=== PATIENT | female | born 1960 ===

== ENCOUNTER 2022-06-26 11:06 | Observation (INO) | payer OTHER, SELFPAY ==
[2022-06-26] VITALS (17 sets, daily range): BP systolic 153–176; BP diastolic 76–103; PULSE 66–97; RESP 17–32; TEMP 36.5–36.9; O2SAT 94–100
--- NOTE | ~2022-06-26 | CT_ITS ---
EXAMINATION: CT brain wo con DATE: 06/26/2022 23:56 INDICATION: Head trauma post fall from bed1 TECHNIQUE: Computed tomography (CT) of the head was performed without intravenous contrast. Sagittal and coronal reconstructions were performed. The mA was adjusted according to patient size. Iterative reconstruction technique was employed. The dose-length product was 605.33 mGy-cm. COMPARISON: None FINDINGS: No fracture. No acute intracranial hemorrhage, acute infarction or abnormal extra axial fluid collect ion. Ventricles are normal and symmetric. No mass/mass effect. Mild mucoperiosteal thickening the wiley ateral ethmoid sinuses. The orbits, paranasal sinuses and mastoid air cells are normal. IMPRESSION: 1. Normal brain. No fracture or acute intracranial process. Reviewed, dictated and finalized at location A.
--- NOTE | ~2022-06-26 | CT_ITS ---
EXAMINATION: CT diagnostic chest wo con DATE: 06/26/2022 13:13 INDICATION: Shortness of breath, history of COPD TECHNIQUE: Computed tomography (CT) of the chest was performed without intravenous contrast. The dose -length product (DLP) was 134.98 mGy-cm. Automated exposure control and iterative reconstruction tech [employer] were employed. COMPARISON: 04/04/2019 FINDINGS: There are patchy airspace opacities of the upper lobes. There is mild atelectasis in the bill perior aspect of the right middle lobe. Moderate emphysema is noted. No pleural effusion or pneumotho rax. Cardiomegaly is noted. There is a stable 6 mm nodule in the left upper lobe adjacent to the sylvia r fissure (image 25). Cardiomegaly is noted. There is a small pericardial effusion. Calcified mediast inal lymph nodes are consistent with old granulomatous disease. There is mild mediastinal lymphadenop athy. Calcified coronary artery atherosclerosis is noted. Stones are present in the nondistended gall bladder. IMPRESSION: 1. Patchy airspace opacities of the upper lobes, consistent with pneumonia. Mild atelectasis of the l ingula. 2. Cardiomegaly. Reviewed, dictated and finalized at location B. IMPRESSION: 1. Patchy airspace opacities of the upper lobes, consistent with pneumonia. Mil d atelectasis of the lingula. 2. Cardiomegaly.
--- NOTE | ~2022-06-26 | XR_ITS ---
EXAMINATION: XR chest 1V portable INDICATION: Cough and shortness of breath TECHNIQUE: Portable AP chest at 1141 hours COMPARISON: 04/04/2019 FINDINGS: The lungs are hyperinflated. Cardiomegaly is noted. There is airspace opacity in the right lung base. No pleural effusion or pneumothorax. IMPRESSION: 1. Right basilar airspace opacity which could reflect atelectasis or pneumonia however given history of tobacco use, recommend further evaluation with CT of the chest as malignancy could have a similar appearance. Reviewed, dictated and finalized at location B. IMPRESSION: 1. Right basilar airspace opacity which could reflect atelectasis or pneumonia however given history of tobacco use, recommend further evaluation with CT of t he chest as malignancy could have a similar appearance.
--- NOTE | 2022-06-26 11:17 | ECG_ITS ---
Measurements Intervals [place] Rate: 93 P: 48 MA: 154 QRS: 110 QRSD: 100 T: -42 QT: 379 QTc: 473 Interpretive Statements SINUS RHYTHM RIGHT AXIS DEVIATION DELAYED PRECORDIAL R/S TRANSITION BORDERLINE ST-T WAVE ABNORMALITY- ANTEROLAT/INF LEADS BASELINE WANDER- V1, V3, V6 BORDERLINE ECG Electronically Signed On 06-26-2022 12:07:44 CDT by George Cancino D.O.
[2022-06-26] MEDS: IPRATROPIUM BR 0.02% INH SOLN 0.5 MG/2.5 ML VIAL INHALATION ×3 (11:26→20:30)
[2022-06-26] MEDS: ALBUTEROL SULFATE NEB 2.5 MG/3 ML INH 5 MG INHALATION ×3 (11:26→20:30)
[2022-06-26 11:35] LABS: Alveolar/Arterial O2 Gradient 86.7 mmHg; Carboxyhemoglobin 7.7 % THb (0-2.0); Fractional Inspired Oxygen 36 %; HCO3 ABG 35.2 mEq/l (22.0-26.0); Methemoglobin ABG 0.3 %THb (0-1.5); Oxygen Content ABG 20.1 %vol (16.0-22.0); Oxygen Saturation ABG 93.8 % (95.0-100.0); PO2 FiO2 Ratio Arterial Blood 2.22 %; Reduced Hemoglobin 5.4 %THb (0-5.0); Total Hemoglobin 16.5 g/dL (12.0-18.0)
[2022-06-26 11:47] LABS: PCO2 ABG 77.6 mmHg (35.0-45.0); pH ABG 7.275 (7.350-7.450)
[2022-06-26 11:48] LABS: Device NASAL CANNULA; Modified Allen's Test Pass; Oxyhemoglobin 86.6 % THb (90.0-100.0); Site Drawn RIGHT RADIAL
[2022-06-26 11:57] LABS: Basophils Absolute Auto 0.1 K/mm3 (0.0-0.1); Basophils Percent Auto 1.6 % (0.2-1.2); Eosinophils Percent Auto 0.7 % (0-4.4); Hematocrit 52.1 % (37.0-47.0); Immature Granulocyte Absolute 0.02 K/mm3 (0.00-0.031); Immature Granulocyte Percent A 0.5 % (0-0.5); Immature Platelet Fraction Pct 5.9 % (0.9-11.2); Lymphocytes Absolute Auto 0.66 K/mm3 (0.9-3.2); Lymphocytes Percent Auto 15.2 % (18.3-44.2); Mean Corpuscular HGB Conc 30.7 g/dl (32-36); Mean Corpuscular Hemoglobin 33.5 pg (26-34); Mean Platelet Volume 10.6 fl (7.4-10.4); Monocytes Absolute Auto 0.3 K/mm3 (0.1-0.6); Monocytes Percent Auto 7.9 % (2.6-8.5); Neutrophils Absolute Auto 3.2 K/mm3 (1.3-6.7); Neutrophils Percent Auto 74.1 % (45.5-73.1); Platelet Count Result 147 k/mm3 (150-375); Red Blood Count 4.78 M/mm3 (4.2-5.4); Red Cell Distribution Width 20.5 % (11.5-14.5); White Blood Count 4.3 K/mm3 (4.5-10.0)
--- NOTE | 2022-06-26 12:00 | ED.SOB ---
HPI - SOB/Dyspnea General Chief Complaint: Shortness of Breath/Dyspnea Stated Complaint: low o2 sat - sob Source: RN notes reviewed History of Present Illness HPI Narrative: Patient presents emergency room from home via EMS for shortness of breath. EMS was called to the patient's house today and the patient was noted to have an O2 saturation at 72% on room air at that time the patient has been placed on nasal cannula with improvement of her breathing patient states she has a history of COPD states that her family had called EMS today but states that she had been feeling fine states she has recently seen a stripper opaquer and is being worked up with pulmonary function test as it is thought the patient is likely going to require oxygen at home she denies any fevers or chills chest pain cough or any other symptoms patient does smoke cigarettes Related Data Allergies Allergy/AdvReac Type Severity Reaction Status Date / Time Sulfa (Sulfonamide Allergy Unknown Verified 05/12/18 10:24 Antibiotics) Review of Systems Review of Systems: Gen.: Denies fevers or chills Eyes: Denies eye pain or visual change ENT: Denies congestion Respiratory: See HPI CV: Denies chest pain or palpitations GI: Denies abdominal pain nausea, emesis or diarrhea Musculoskeletal: Denies back pain or muscle pain Neuro: Denies numbness, tingling, weakness or focal weakness Skin: Denies rash Except as documented, all other systems reviewed and negative [facility] Past Medical History Medical History (Updated 06/26/22 @ 14:05 by Emerson Vásquez DO) COPD (chronic obstructive pulmonary disease) Family History Family History (Updated 05/12/18 @ 10:54 by DOCTOR UNKNOWN) Sibling Acute myocardial infarction, Onset Age: 37 Father Acute myocardial infarction, Onset Age: 54 Mother Family history of pancreatic cancer, Onset Age: 56 Social History Social History Smoking status: Heavy tobacco smoker Exam Narrative: APPEARANCE: No acute distress, nontoxic, resting in bed EYES: EOMI HEENT: Normocephalic, atraumatic, OMM RESPIRATORY: Mild respiratory distress, decreased breath sounds at the bilateral lung león with mild wheezing in the upper lung león no rhonchi CARDIOVASCULAR: Regular rate and rhythm without murmurs rubs or gallops. ABDOMINAL: Soft, nontender, nondistended, no rebound or guarding MUSCULOSKELETAl: Moves all extremities. No clubbing, cyanosis or edema. NEURO: Awake and alert. Following commands, speech normal, no focal deficits SKIN:: Warm, dry. No rashes lesions or abrasions PSYCHIATRIC: Normal affect/mood, Course Course Emergency Course: Patient initially placed on BiPAP but is taken off the BiPAP states she does not wish to wear anymore patient is ANO x4 discussed with the patient the risk of taking off the BiPAP including the patient and her son and she also states that she wishes to leave at this time as she does not like staying in hospitals at that time I did have the patient's family come back into the room after discussion with the family in the room the family is able to convince the patient to stay for further work-up and evaluation the patient is willing to wear the BiPAP for short amount time at this time patient states that she is a DNR Discussed with RAYO Loo for Dr. Sharma agrees with admission Discussed with patient and family results of workup and diagnosis. Discussed need for admission. Patient and family understand and agree to current treatment plan Vital Signs Vital signs: Vital Signs Temperature 98.1 F 06/26/22 11:01 Pulse Rate 93 06/26/22 11:01 Respiratory Rate 27 H 06/26/22 11:01 Blood Pressure 176/103 H 06/26/22 11:01 Pulse Oximetry 97 06/26/22 11:01 Oxygen Delivery Nasal Cannula 06/26/22 11:01 Oxygen Flow Rate 4 06/26/22 11:01 Temperature 98.1 F 06/26/22 11:01 Pulse Rate 91 /
[2022-06-26 12:12] LABS: INR 1.1; Prothrombin Time 13.5 Seconds (11.1-14.7)
[2022-06-26 12:13] LABS: Alanine Aminotransferase 19 U/L (6-35); Albumin Level 3.5 g/dL (3.5-5.1); Alkaline Phosphatase 84 U/L (38-126); Anion Gap 5 mmol/L (8-16); Aspartate Amino Transferase 31 U/L (14-36); Bilirubin,Total 1.1 mg/dL (0.2-1.3); Blood Urea Nitrogen 9 mg/dL (7-17); Calcium 7.9 mg/dL (8.4-10.2); Carbon Dioxide 34 mmol/L (22-30); Chloride 96 mmol/L (98-107); Estimated CRCL calculation 95 ml/min; Estimated Glomerular Filt Rate > 60; Glucose 102 mg/dL (65-110); Partial Thromboplastin Time 27.1 SECONDS (22.3-36.8); Potassium 4.2 mmol/L (3.4-5.0); Sodium 135 mmol/L (137-145)
[2022-06-26 12:24] LABS: NT Pro B Type Natriuretic Pept 10900 pg/mL (5-100); Troponin I 0.025 ng/mL (0.000-0.034)
--- NOTE | 2022-06-26 12:25 | PC.NURSE ---
pt pulled Bipap off and states she want to leave. pt educated on the importance of leaving bipap on and staying in the hospital. pt 60% on room air. placed pt on nonrebreather on 15L. pt O2 back up to 100%. EDP Octavia aware.
--- NOTE | 2022-06-26 12:37 | PC.NURSE ---
CHERYL Vásquez and this RN talking with patient on the importance of wearing oxygen and staying in the hospital. pt still requesting to leave. family brought back to room to talk with patient.
[2022-06-26 12:38] LABS: SARS-CoV-2 RNA PCR Negative
--- NOTE | 2022-06-26 12:40 | PC.NURSE ---
EDP Thalia states to put pt on 4L nasal cannula. pt on 96% on 4L. family spoke with pt and is agreeing to do CT Scan. pt still refusing bipap. pt agreeing to wear 4L nasal cannula.
[2022-06-26 13:06] LABS: Platelet Estimate Adequate (Adequate); Polychromasia 1+ (NORMAL); Stomatocytes 1+ (NORMAL)
--- NOTE | 2022-06-26 15:15 | PM.IMHP ---
H&P: HPI History of Present Illness Date/Time: 06/26/22 15:15 Chief Complaint: Shortness of breath. Narrative: This is a 61-year-old female smoker with COPD who presented to the emergency department via EMS from home for evaluation of shortness of breath. Her day-to-day activities are limited by her breathing, for instance she needs to walk behind a cart when out shopping at the store and she gets winded when doing activities throughout the home. More recently she has had increasing dyspnea on lesser and lesser exertion and in fact her primary care provider has set her up with a home oxygen study next week. In any event, her breathing has been much worse the last several days and she has had a dry cough. This morning she was working so hard to breathe that she did not even fight her when he wanted to call 911. Her SpO2 was 72% on room air on EMS arrival and she was administered a DuoNeb and Solu-Medrol 125 mg IV x1. Her oxygenation improved with the addition of 4 L nasal cannula. ABG done on arrival showed a pH of 7.275 and a pCO2 of 77.6 and a BiPAP was ordered however the patient refused. Initially she told the ED physician that she would not wear the BiPAP and she would not want to be intubated or receive chest compressions should her condition deteriorate. However after I had conversations with the patient she decided that she would go ahead and try the BiPAP and she would be okay with intubation temporarily if needed. Currently she is feeling better and in fact she is hungry wanting to eat before trying the BiPAP. She denies fever, chills, sweats, sinus congestion, sore throat, chest pain, pleuritic pain, palpitations, orthopnea, paroxysmal nocturnal dyspnea, and lower extremity edema. Review of Systems Review of Systems: Twelve systems were reviewed. No recent cold or flu symptoms. No sick contacts. She has been falling out of bed almost every night for the last 1 month but does not know how. has not noticed any confusion and he denies that she sleep walks. She does occasionally snore but he has not ever witnessed any apneic episodes. A couple of days ago she fell out of bed and hit her left eye on the ground and she currently has some swelling and bruising. No change in visual acuity. No history of cardiac disease. She denies exertional chest pain and palpitations. No edema today but she did notice some swelling in her ankles last week. She does drink beer each night but does not really quantify exactly how much she drinks however she does drink heavier on the weekends when they are out at their [place] house. She denies ever having signs or symptoms of alcohol withdrawal. Except as documented, all other systems were reviewed and are negative. [facility] Past Medical History Medical History (Updated 06/26/22 @ 23:15 by Cinda Roy PA-C) Alcohol abuse Chronic obstructive pulmonary disease Tobacco dependence Surgical History Surgical History History of section History of excision of mass (03/30/12) Benign cystic mass from right lower lip. Family History Family History Sibling Acute myocardial infarction, Onset Age: 37 Father Acute myocardial infarction, Onset Age: 54 Mother Family history of pancreatic cancer, Onset Age: 56 Social History Social History (Updated 06/26/22 @ 23:12 by Cinda Roy PA-C) Social History: Surrogate medical decision maker: Omi Miles, spouse. Code status: Full code. Smoking packs per day: 2 Smoking cigarettes per day: 40.0 Years smoked: 52 Smoking pack-years: 104.00 Smoking status: Current every day smoker Alcohol intake: current Alcohol use details: 5 to 6 beers per night, more on the weekends. Substance use: never Additional living arrangements comments: The patient lives with her in [facility]
[2022-06-26] MEDS: methylPREDNISolone SOD SUCC 125 MG VIAL 60 MG IV PUSH (17:02)
[2022-06-26 17:47] LABS: Alveolar/Arterial O2 Gradient 70.7 mmHg; Base Excess ABG -0.2 mEq/l (+/-2.0); Carboxyhemoglobin 4.4 % THb (0-2.0); Fractional Inspired Oxygen 32 %; HCO3 ABG 28.4 mEq/l (22.0-26.0); Methemoglobin ABG 0.4 %THb (0-1.5); Oxygen Content ABG 21.6 %vol (16.0-22.0); Oxyhemoglobin 90.7 % THb (90.0-100.0); PO2 ABG 85.2 mmHg (80.0-100.0); PO2 FiO2 Ratio Arterial Blood 2.66 %; Reduced Hemoglobin 4.5 %THb (0-5.0); Total Hemoglobin 16.9 g/dL (12.0-18.0)
[2022-06-26 17:51] LABS: PCO2 ABG 61.8 mmHg (35.0-45.0); Site Drawn RIGHT RADIAL
[2022-06-26 17:52] LABS: Device NASAL CANNULA; Modified Allen's Test Pass
[2022-06-26] MEDS: NICOTINE (*PBKC) 21 MG PATCH 1 PATCH TRANSDERM (20:38)
[2022-06-26] MEDS: chlordiazePOXIDE (*CRX) 10 MG CAPSULE 20 MG PO (20:38)
[2022-06-27] VITALS (18 sets, daily range): BP systolic 134–141; BP diastolic 74–78; PULSE 67–108; RESP 12–26; TEMP 36.1–36.7; O2SAT 87–97
[2022-06-27] MEDS: THIAMINE HCL 200 MG/2 ML VIAL 100 MG IV PUSH (00:07)
[2022-06-27] MEDS: methylPREDNISolone SOD SUCC 125 MG VIAL 60 MG IV PUSH ×3 (00:08→12:14)
[2022-06-27 00:13] LABS: Iron 33 ug/dL (37-170)
[2022-06-27 00:26] LABS: Percent Iron Saturation 9 % (20-50)
[2022-06-27 00:54] LABS: Folic Acid 3.7 ng/mL (2.76->20)
[2022-06-27 01:29] LABS: Free T4 Free Thyroxine Reflex 0.97 ng/dL (0.78-2.19)
[2022-06-27 02:14] LABS: Total Triiodothyronine (T3) 0.73 NG/ML (0.97-1.69)
--- NOTE | 2022-06-27 03:27 | PCRCNOTE ---
Patient refused her 0200 treatment stating she only does them QID at home. She also refused use of the bipap overnight. ABG to be obtained @ 0500.
[2022-06-27 05:23] LABS: Alveolar/Arterial O2 Gradient 47.1 mmHg; Base Excess ABG 4.6 mEq/l (+/-2.0); Fractional Inspired Oxygen 32 %; HCO3 ABG 33.6 mEq/l (22.0-26.0); Methemoglobin ABG 0.5 %THb (0-1.5); Oxygen Content ABG 21.4 %vol (16.0-22.0); Oxygen Saturation ABG 96.9 % (95.0-100.0); Oxyhemoglobin 93.7 % THb (90.0-100.0); PO2 FiO2 Ratio Arterial Blood 3.16 %; Reduced Hemoglobin 2.8 %THb (0-5.0); Total Hemoglobin 16.2 g/dL (12.0-18.0); pH ABG 7.309 (7.350-7.450)
[2022-06-27 05:24] LABS: Modified Allen's Test Pass; PCO2 ABG 68.4 mmHg (35.0-45.0); Site Drawn RIGHT RADIAL
[2022-06-27 05:28] LABS: Device NASAL CANNULA
[2022-06-27 05:37] LABS: Basophils Percent Auto 0.4 % (0.2-1.2); Hematocrit 50.2 % (37.0-47.0); Hemoglobin 15.8 g/dL (12.0-15.0); Immature Granulocyte Absolute 0.02 K/mm3 (0.00-0.031); Immature Granulocyte Percent A 0.8 % (0-0.5); Lymphocytes Absolute Auto 0.28 K/mm3 (0.9-3.2); Lymphocytes Percent Auto 11.1 % (18.3-44.2); Mean Corpuscular HGB Conc 31.5 g/dl (32-36); Mean Corpuscular Hemoglobin 34.1 pg (26-34); Mean Corpuscular Volume 108.4 fl (80-100); Mean Platelet Volume 10.8 fl (7.4-10.4); Monocytes Absolute Auto 0.1 K/mm3 (0.1-0.6); Monocytes Percent Auto 4.4 % (2.6-8.5); Neutrophils Absolute Auto 2.1 K/mm3 (1.3-6.7); Neutrophils Percent Auto 83.3 % (45.5-73.1); Platelet Count Result 144 k/mm3 (150-375); Red Blood Count 4.63 M/mm3 (4.2-5.4); Red Cell Distribution Width 19.7 % (11.5-14.5); White Blood Count 2.5 K/mm3 (4.5-10.0)
[2022-06-27] MEDS: chlordiazePOXIDE (*CRX) 10 MG CAPSULE 20 MG PO (05:47)
[2022-06-27 05:48] LABS: Alanine Aminotransferase 17 U/L (6-35); Albumin Level 3.3 g/dL (3.5-5.1); Alkaline Phosphatase 75 U/L (38-126); Aspartate Amino Transferase 21 U/L (14-36); Bilirubin,Total 0.7 mg/dL (0.2-1.3); Blood Urea Nitrogen 12 mg/dL (7-17); Carbon Dioxide > 40 mmol/L (22-30); Chloride 92 mmol/L (98-107); Estimated CRCL calculation 80 ml/min; Estimated Glomerular Filt Rate > 60; Glucose 186 mg/dL (65-110); Potassium 4.1 mmol/L (3.4-5.0); Sodium 135 mmol/L (137-145)
[2022-06-27 06:16] LABS: Anisocytosis 2+ (NORMAL); Macrocytosis 1+ (NORMAL); Platelet Estimate Adequate (Adequate)
[2022-06-27] MEDS: ALBUTEROL SULFATE NEB 2.5 MG/3 ML INH 5 MG INHALATION (07:48)
[2022-06-27] MEDS: IPRATROPIUM BR 0.02% INH SOLN 0.5 MG/2.5 ML VIAL INHALATION (07:48)
[2022-06-27] MEDS: NICOTINE (*PBKC) 21 MG PATCH 1 PATCH TRANSDERM (09:27)
[2022-06-27] MEDS: THERAPEUTIC MULTIVITAMINS/MINERALS TAB (*BKC) 1 TABLET PO (09:28)
[2022-06-27] MEDS: FOLIC ACID 1 MG TABLET PO (09:28)
[2022-06-27] MEDS: THIAMINE HCL 100 MG TABLET PO (09:28)
--- NOTE | 2022-06-27 12:38 | PM.DS ---
DS: Admitting Diagnosis Discharge Date June 27, 2022 Admitting Diagnosis COPD DS: Discharge Diagnosis Discharge Diagnosis (1) Acute respiratory failure with hypoxia and hypercarbia: Code(s): J96.01 - Acute respiratory failure with hypoxia; J96.02 - Acute respiratory failure with hypercapnia Status: Acute Assessment and Plan: Much better today. Will get her set up on home oxygen. Antibiotics and prednisone on discharge. Will also add Symbicort (2) COPD exacerbation: Code(s): J44.1 - Chronic obstructive pulmonary disease with (acute) exacerbation Status: Acute Assessment and Plan: Continue scheduled bronchodilators and Solu-Medrol. (3) Pneumonia: Code(s): J18.9 - Pneumonia, unspecified organism Status: Acute Assessment and Plan: Continue azithromycin and ceftriaxone. Attempt sputum for culture. Check urinary antigens. (4) Cardiomegaly: Code(s): I51.7 - Cardiomegaly Status: Acute Assessment and Plan: Echocardiogram has been ordered for a.m. for further evaluation. (5) Tobacco dependence: Code(s): F17.200 - Nicotine dependence, unspecified, uncomplicated Status: Acute Assessment and Plan: Smoking cessation is imperative in was discussed. She does not seem to motivated at this time. Nicotine patch available. (6) Alcohol abuse: Code(s): F10.10 - Alcohol abuse, uncomplicated Status: Acute Assessment and Plan: She is unable to really qualify the amount of alcohol she drinks however reports that she drinks at least 5 beers a night, more on the weekends. She denies ever having signs or symptoms of alcohol withdrawal though we will initiate CIWA protocol in schedule Librium. Start thiamine and folic acid supplementation. DS: Summary Hospital Course Hospital Course: Patient came in COPD exacerbation and hypoxia. She was getting ready to be set up with home oxygen at home next week. She could make and then sister came in the ER. Will have her evaluated for home oxygen. Otherwise patient is on 2liters and doing exceptionally well she can be discharged home. Time Spent with Patient Time attestation: Total time spent providing and/or coordinating discharge services: Exam Narrative: General: Chronically ill-appearing female sitting up in bed. Weight: 71.3 kg. BMI: 24.6. HEENT: Mild swelling of the left upper eyelid with bruising that extends to the forehead. PERRL, EOMI. Conjunctivae anicteric. Tacky mucous membranes. Neck: Supple. No lymphadenopathy or jugular venous distension. Respiratory: Respirations are nonlabored and she is able to speak in full sentences. Lung sounds are diminished throughout with increased expiratory phase and scattered wheezes. Cardiovascular: Regular rate and rhythm with S1-S2. Gastrointestinal: Abdomen is soft, flat, nontender, and nondistended with positive bowel sounds. Skin: Warm dry, and andino. Extremities: No cyanosis, clubbing, or edema. Radial and pedal pulses intact. Negative Yusuf sign bilaterally. Neurological: Alert and oriented x4 Cranial nerves 2-12 are grossly intact. No gross focal deficits to casual conversation. Psychiatric: Pleasant and cooperative. Appropriate mood and affect. DS: Data Data Completed and Pending Labs on day of discharge: Labs from last 24 hours 06/27/22 06/27/22 06/27/22 05:08 04:13 04:13 WBC 2.5 L RBC 4.63 Hgb 15.8 H Hct 50.2 H MCV 108.4 H MCH 34.1 H MCHC 31.5 L RDW 19.7 H Plt Count 144 L MPV 10.8 H Immature Gran % (Auto) 0.8 H Neut % (Auto) 83.3 H Lymph % (Auto) 11.1 L Whitman % (Auto) 4.4 Eos % (Auto) 0.0 Baso % (Auto) 0.4 Lymph # (Auto) 0.28 L Whitman # (Auto) 0.1 Eos # (Auto) 0.0 Baso # (Auto) 0.0 Abs Immat Gran (auto) 0.02 Absolute Neuts (auto) 2.1 Absolute Nucleated RBC 0.0 Nucleated RBC % 0.0 Platelet Estimate Adequate
--- NOTE | 2022-06-27 13:17 | HOMEO2EVAL ---
Evaluation was performed at [facility] Home Oxygen Evaluation RC: Home Oxygen (O2) Evaluation Start: 06/27/22 12:35 Freq: ONCE Status: Active Protocol: RPE Activity Type Activity Date Activity User E-sign Co-sign Detail Recorded Client Recorded Date Recorded By Document 06/27/22 12:30 PK [email or web address] 06/27/22 13:17 PKH Document 06/27/22 12:35 [email or web address] 06/27/22 13:17 PKH Document 06/27/22 12:40 PK [email or web address] 06/27/22 13:17 PK Document 06/27/22 12:45 PK [id number] 06/27/22 13:17 PK Document 06/27/22 13:00 PK [email or web address] 06/27/22 13:17 PKH 06/27/22 06/27/22 06/27/22 12:30 12:35 12:40 Home O2 Evaluation Test Phase Resting Resting Resting Oxygen Delivery Room Air Nasal Cannula Nasal Cannula Oxygen Flow Rate (L/min) 1 2 Pulse Oximetry (90-100 %) 87 L 88 L 92 Pulse Rate (60-100 beats/min) 100 100 102 H Activity Tolerance Ambulation Distance (feet) Ambulation Distance (meters) Home Oxygen Evaluation Comments Treatment Charges 06/27/22 06/27/22 12:45 13:00 Home O2 Evaluation Test Phase Exercise Resting Oxygen Delivery Nasal Cannula Nasal Cannula Oxygen Flow Rate (L/min) 2 2 Pulse Oximetry (90-100 %) 93 93 Pulse Rate (60-100 beats/min) 102 H 102 H Activity Tolerance Good Ambulation Distance (feet) 300 Ambulation Distance (meters) 91.43 Home Oxygen Evaluation Comments Patient requires 2lpm with rest and activity. Treatment Charges O2 Evaluation - Inpatient
--- NOTE | 2022-06-27 13:28 | PCRCNOTE ---
HOME O2 EVAL DONE, 2 L WITH REST AND ACTIVITY. WILL ARRANGE WITH [employer] PHONE # [phone]. RN NOTIFIED. WILL DROP OFF TRANSPORT TANK TO ROOM PRIOR TO D/C
--- NOTE | 2022-06-27 23:18 | ECHO_ITS ---
Patient Info Name: Meka Aquino Age: 61 years : 1960 Gender: Female Ht: 67 in Wt: 157 lbs BSA: 1.84 m2 HR: 87 bpm BP: 141 / 78 mmHg Heart Rhythm: Sinus Rhythm Technical Quality: Fair Exam Date: 06/27/2022 8:14 AM Exam Location: [facility] Pulmonary Patient Status: Outpatient Admit Date: 06/26/2022 Staff Ordering Physician: Cinda Roy PA-C Protective Clothing Issuer: Jeannie Hatfield RDCS Attending Provider: Brayan Sharma MD Referring Physician: Manuela HERNANDEZ; Exam Type: CA echo doppler color flow Study Info Indications - cardiomegaly, hypoxia Complete two-dimensional, color flow and Doppler transthoracic echocardiogram is performed. Summary 1. Complete two-dimensional, color flow and Doppler transthoracic echocardiogram is performed. 2. There is mild concentric increased left ventricular wall thickness. 3. Normal systolic function vigorous ejection fraction at 72%. 4. Left atrial chamber dimension is mildly enlarged. 5. There is small pericardial effusion. Left Ventricle Left ventricular chamber dimension is normal. There is mild concentric increased left ventricular wall thickness. The left ventricular diastolic function is grade I diastolic dysfunction. Normal systolic function vigorous ejection fraction at 72%. Right Ventricle Right ventricular chamber dimension is normal. Left Atria Left atrial chamber dimension is mildly enlarged. Right Atria Right atrial chamber dimension is normal. Aortic Valve The aortic valve is normal. Pulmonic Valve The pulmonic valve is normal. Mitral Valve The mitral valve has normal leaflets. Tricuspid Valve The tricuspid valve leaflets are normal. Pericardium/Pleural There is small pericardial effusion. Aorta The aortic root size at the sinus of Valsalva is normal. Left Ventricular Outflow Tract Name Value Normal LVOT 2D LVOT Diameter 2.0 cm LVOT Doppler LVOT Peak Gradient 7 mmHg LVOT Mean Gradient 3 mmHg LVOT VTI 23 cm LVOT VTI/AV VTI Ratio 0.5 LVOT Stroke Volume 77 ml LVOT CO 7.5 l/min LVOT CI 4.1 l/min/m2 Pulmonic Valve Name Value Normal RVOT Doppler RVOT Peak Gradient 3 mmHg PV Doppler PV Peak Gradient 5 mmHg Mitral Valve Name Value Normal MV Doppler MV Decel Cook 998 cm
[2022-06-30 05:33] LABS: Pneumococcal Antigen Urine Detected (Not Detected)
[2022-06-30 18:36] LABS: Legionella pneumophila Ag Ur Not Detected (Not Detected)
[2022-07-02 20:35] LABS: Mycoplasma IgM Antibody Titer 97 U/mL (<770)
== END 2022-06-27 16:10 | disposition home or self-care (01) ==
LOC: ANHED 14:05 → ANHIMU 16:29
PROVIDERS: Physician Assistant; Admitting Provider Internal Medicine; Emergency Provider Emergency Medicine; PCP Nurse Practitioner Adult Health; Visit Provider Chiropractor
DX: J96.01 Acute respiratory failure with hypoxia (principal); J96.02 Acute respiratory failure with hypercapnia; J44.0 Chronic obstructive pulmonary disease with (acute) lower respiratory infection; J18.9 Pneumonia, unspecified organism; J44.1 Chronic obstructive pulmonary disease with (acute) exacerbation; S00.83XA Contusion of other part of head, initial encounter; W06.XXXA Fall from bed, initial encounter; Z91.81 History of falling; I51.7 Cardiomegaly; F17.210 Nicotine dependence, cigarettes, uncomplicated; F10.10 Alcohol abuse, uncomplicated; Z79.51 Long term (current) use of inhaled steroids; Z20.822 Contact with and (suspected) exposure to COVID-19
CPT/HCPCS: 36415; 36600; 70450; 71045; 71250; 80053; 82375; 82607; 82728; 82746; 82805; 83050; 83540; 83550; 83880; 84439; 84443; 84480; 84484; 85025; 85055; 85610; 85730; 86738; 87040; 87070; 87205; 87449; 87899; 93005; 93306; 94618; 94640; 96365; 96366; 96367; 96368; 96375; 96376; 99285; A9270; C9803; G0378; J0456; J0696; J2930; J3411; U0003; U0005